=== PATIENT | male | born 1960 | race Caucasian/White ===

== ENCOUNTER → 2017-10-23 | Outpatient (CLI) | payer BC ==
[2017-10-23 12:39] LABS: BASO % 0.6 %; BASO ABS # 0.04 K/uL (0-0.2); EOS % 2.2 %; EOS ABS # 0.14 K/uL (0-0.5); HEMATOCRIT 51.2 % (42-52); HEMOGLOBIN 17.7 g/dL (14.0-18.0); IG# 0.01 K/uL (0.00-0.02); LYMPH % 36.9 %; LYMPH ABS # 2.37 K/uL (1.2-3.4); MEAN CELL VOLUME 86.3 fL (80-100); MEAN CORPUSCULAR HEMOGLOBIN 29.8 pg (25-34); MEAN CORPUSCULAR HGB CONC 34.6 g/dl (32-36); MEAN PLATELET VOLUME 10.6 fL (7.4-10.4); MONO % 11.1 %; MONO ABS # 0.71 K/uL (0.11-0.59); NEUT ABS # 3.15 K/uL (1.4-6.5); PLATELET COUNT 282 K/uL (130-400); RED CELL DISTRIBUTION WIDTH CV 12.9 % (11.5-14.5); WHITE BLOOD COUNT 6.42 K/uL (4.8-10.8)
[2017-10-23 12:43] LABS: ALBUMIN 3.9 gm/dl (3.4-5.0); ALT/SGPT 42 U/L (12-78); BLOOD UREA NITROGEN 16 mg/dl (7-18); CALCIUM 9.1 mg/dl (8.5-10.1); CARBON DIOXIDE 28 mmol/L (21-32); CHOLESTEROL 164 mg/dl (0-200); CREATININE 1.08 mg/dl (0.60-1.40); GLUCOSE 99 mg/dl (70-99); POTASSIUM 4.5 mmol/L (3.5-5.1); SODIUM 138 mmol/L (136-145)
[2017-10-23 12:48] LABS: ALKALINE PHOSPHATASE 113 U/L (45-117); AST/SGOT 22 U/L (15-37); LDL CHOLESTEROL CALCULATED 79 mg/dl; TOTAL PROTEIN 7.9 gm/dl (6.4-8.2)
== END | disposition home or self-care (01) ==
LOC: C.LABPBG 09:48
PROVIDERS: ATTEND Neuromusculoskeletal Medicine & OMM
DX: I10 Essential (primary) hypertension (principal); E78.5 Hyperlipidemia, unspecified; N41.9 Inflammatory disease of prostate, unspecified

== ENCOUNTER → 2017-11-15 | Outpatient (CLI) | payer BC ==
--- NOTE | 2017-11-15 11:34 | DIAGNOSTIC IMAGING REPORT ---
ULTRASOUND R VENOUS DOPP LOWER EXT UNILAT CLINICAL HISTORY: I82.811 Superficial thrombosis of right lower extremity COMPARISON STUDY: No previous studies for comparison. FINDINGS: Real-time and color flow Doppler imaging were performed. Flow was seen within the femoral, popliteal and calf veins with no intraluminal thrombus demonstrated. There is occlusive thrombus within the right greater saphenous vein extending to the proximal thigh to the knee. There is nonocclusive thrombus within the greater saphenous vein at the level of the distal calf IMPRESSION: 1. No evidence of right lower extremity DVT 2. Extensive greater saphenous vein thrombus Electronically signed by: Yonathan Gonzalez M.D. 11/15/2017 11:33 AM Dictated Date/Time: 11/15/2017 11:31 AM
== END | disposition home or self-care (01) ==
LOC: C.ULTRBC 10:47
PROVIDERS: ATTEND Nurse Practitioner Family
DX: I82.811 Embolism and thrombosis of superficial veins of right lower extremity (principal)